=== PATIENT | female | born 1945 | race Caucasian/White ===

== ENCOUNTER 2017-10-31 11:38 | Emergency (ER) | payer OTHER ==
--- NOTE | 2017-10-31 12:26 | EDPHY ---
H & P Time Seen by Provider: 10/31/17 12:01 HPI/ROS: CHIEF COMPLAINT: Hematuria HISTORY OF PRESENT ILLNESS: This is a 72-year-old female's worried that she is having vaginal bleeding. She got up this morning feeling her usual state of good health and did a 1st morning void without any problems. She thereby went to apply these class and again felt well. Upon return she was anticipating taking a shower so she went into urinate. She noted some blood on the underwear and blood on the tissue when she wiped but no actual blood in the commode. Subsequently she is concerned as to the origin of the blood be a bladder verses vaginal. He does have a history of interstitial cystitis as well as prior problems related to a UTI this past winter. She was on antibiotic at the time some 7 months ago. Of note is that she has not had any fevers or chills flank pain or back pain or abdominal pain. Is also no sense of urgency or dysuria or frequency. There is no pain with voiding today. Fever none Chills none Rigors none flank pain none abdominal pain none REVIEW OF SYSTEMS: Gastrointestinal: No vomiting, no abdominal pain. 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 Smoking Status: Former smoker Physical Exam: Gen: Afebrile. WD. WN. Nontoxic. Abdomen: BS positive. Nondistended. Soft and nontender. No CVA tenderness Genital/Pelvic: Age-appropriate, slight atrophy Normal external genitalia, except for a small area of excoriation at the vaginal opening just below the urethral meatus. After the exam, this area left a small amount of blood on either side of the speculum itself. No discharge. No erythema or lesions noted in the vaginal canal. There is no blood or erythema or friability to the cervix. Somewhat mucoid appearance at cervix without friability or discharge. Constitutional: Initial Vital Signs Temperature (C) 37.2 C 10/31/17 11:42 Heart Rate 76 10/31/17 11:42 Respiratory Rate 16 10/31/17 11:42 Blood Pressure 179/82 H 10/31/17 11:42 O2 Sat (%) 94 10/31/17 11:42 O2 Delivery Mode Room Air Allergies/Adverse Reactions: codeine Allergy (Verified 10/31/17 11:52) Home Medications: Medication Instructions Recorded Antidepressant 10/31/17 Aspirin 10/31/17 Irbesartan 10/31/17 Metoprolol Succinate 10/31/17 Nitrofurantoin Macrobid [Macrobid] 100 mg PO BID #10 cap 10/31/17 SIMVASTATIN 10/31/17 Medical Decision Making ED Course/Re-evaluation: Initial urine dip here which was on a small voided specimen showed 3+ leuks with some hematuria. Due to the small volume I have asked her for a 2nd specimen which would be sent for formal urinalysis and culture. Further she has no dysuric symptoms thus as she had some spotting on her underwear she is worried that she is having no vaginal bleeding thus a vaginal exam was performed per her request, findings noted above under physical. There is an area of mild and otitis that I would not have her change her usual vaginal foam related to such. The cervix was clear. I will put her on 5 days of nitrofurantoin pending the urinalysis and urine cultures been sent to the main lab at [facility] as of 1:00 p.m.. 1400 hr: Urinalysis did show on dilute specimen 5-10 red cells with culture pending Differential Diagnosis: Differential diagnosis includes but is not limited to: Urinary tract infection, introititis, pyelonephritis, cystitis, ureterolithiasis, kidney stone, urinary retention]. - Data Points Laboratory Results: 10/31/17 12:43 Urine Color YELLOW Urine Appearance CLEAR Urine pH 7.0 (5.0-7.5) Ur Specific [place] 1.006 (1.002-1.030) Urine Protein NEGATIVE (NEGATIVE) Urine Ketones NEGATIVE (NEGATIVE) Urine Blood 1+ H (NEGATIVE) Urine Nitrate NEGATIVE (NEGATIVE) Urine Bilirubin NEGATIVE (NEGATIVE) Urine Urobilinogen NEGATIVE EU EU (0.2-1.0) Ur Leukocyte Esterase NEGATIVE (NEGATIVE) Urine RBC 5-10 /hpf H /hpf (0-3) Urine WBC 1-3 /hpf /hpf (0-3) Ur Epithelial Cells NONE SEEN /lpf /lpf (NONE-1+) Urine Glucose NEGATIVE (NEGATIVE) Point of Care Test Results: Urine Dip Collection Date 10/31/17 Collection Time 12:00 Specific [place] (1.002-1.030) 1.010 PH (5.0-7.5) 7.0 Leukocytes (Negative) 1+ Nitrites (Negative) Negative Protein (Negative) Negative Glucose (Negative) Negative Ketones (Negative) Negative Urobilnogen (0.2-1.0 EU) 0.2 Bilirubin (Negative) Negative Blood (Negative) 3+ Departure - Departure Disposition: Home, Routine, Self-Care Clinical Impression: Vaginal bleeding Condition: Good Instructions: Nitrofurantoin Combination (By mouth), Vaginal Atrophy (ED) Additional Instructions: You should go on nitrofurantoin for the next 5 days awaiting culture. Call us at [phone] for final results Referrals: NONE *PRIMARY CARE P,. [Primary Care Provider] - As per Instructions Prescriptions: Nitrofurantoin Macrobid [Macrobid] 100 mg PO BID #10 cap
[2017-10-31 14:19] VITALS: BP 161/75
== END 2017-10-31 13:15 | disposition home or self-care (01) ==
LOC: CED 11:38
DX: N93.9 Abnormal uterine and vaginal bleeding, unspecified (principal); Z79.82 Long term (current) use of aspirin; Z87.891 Personal history of nicotine dependence